=== PATIENT | female | born 1930 | race Caucasian/White ===

== ENCOUNTER → 2016-10-19 | Outpatient (CLI) | payer OTHER ==
[~2016-10-19] MED LIST: DILTIAZEM 24HR240 MG PO; FUROSEMIDE 40 M40 M1 PO; GLUCOPHAGE XR500 MG PO; GLUCOPHAGE500 MG; LASIX 40 MG TAB40 M1; PAROXETINE ER12.5 MG PO; PROTONIX40 M2 PO; TOPROL XL25 MG PO
== END ==
LOC: HYPER 10-10 13:05
DX: I89.0 Lymphedema, not elsewhere classified (principal); E11.69 Type 2 diabetes mellitus with other specified complication; I87.2 Venous insufficiency (chronic) (peripheral); I48.91 Unspecified atrial fibrillation; I10 Essential (primary) hypertension; E78.00 Pure hypercholesterolemia, unspecified; Z79.84 Long term (current) use of oral hypoglycemic drugs